=== PATIENT | male | born 1945 ===

== ENCOUNTER 2022-08-08 07:54 | Day surgery (SDC) | payer OTHER ==
[~2022-08-08] VITALS: Ht 175.3 cm; Wt 70.8 kg
[~2022-08-08 07:54] MED LIST: CLARITIN-D1 TA2 PO; COLACE100 MG PO; FIBER625 MG PO; TERA EX; [UNRECOGNIZED DRUG - OTHER] EX
[2022-08-08] MEDS ORDERED: TORADOL PO (10:22)
[2022-08-08 12:05] VITALS: BP 140/78
== END 2022-08-08 12:45 | DRG 352 ==
LOC: ORM 07:54
PROVIDERS: ATTEND Surgery
PROC: 0YUA4JZ Supplement Bilateral Inguinal Region with Synthetic Substitute, Percutaneous Endoscopic Approach (ICD-10-PCS; principal; 2022-08-08)
DX: K40.20 Bilateral inguinal hernia, without obstruction or gangrene, not specified as recurrent (principal)
CPT/HCPCS: C1781; C9290; J0131